=== PATIENT | female | born 1965 | race African-American/Black ===

== ENCOUNTER → 2017-05-25 | Outpatient (CLI) | payer BC | END | disposition home or self-care (01) | LOC: MAMMO 08:10 | PROVIDERS: ATTEND Family Medicine | DX: Z12.31 Encounter for screening mammogram for malignant neoplasm of breast (principal) | CPT/HCPCS: G0202 ==

== ENCOUNTER → 2018-04-01 | Outpatient (CLI) | payer SELFPAY | END | disposition home or self-care (01) | LOC: RAD 10:06 | PROVIDERS: ATTEND Radiology Diagnostic Radiology | DX: Z12.31 Encounter for screening mammogram for malignant neoplasm of breast (principal) | CPT/HCPCS: 77067 ==

== ENCOUNTER → 2019-04-21 | Outpatient (CLI) | payer BC | END | disposition home or self-care (01) | LOC: MAMMO 11:35 | PROVIDERS: ATTEND Family Medicine | DX: Z12.31 Encounter for screening mammogram for malignant neoplasm of breast (principal); R92.1 Mammographic calcification found on diagnostic imaging of breast | CPT/HCPCS: 77067 ==

== ENCOUNTER → 2019-05-07 | Outpatient (CLI) | payer BC ==
[2019-05-07 10:36] LABS: FOLIC ACID (FOLATE) SERUM 10.1 ng/mL (>5.38)
== END | disposition home or self-care (01) ==
LOC: LAB 08:04
PROVIDERS: ATTEND Family Medicine
DX: N92.6 Irregular menstruation, unspecified (principal)
CPT/HCPCS: 36415; 82746

== ENCOUNTER → 2019-10-03 | Outpatient (CLI) | payer BC | END | disposition home or self-care (01) | LOC: MRI 09:00 | PROVIDERS: ATTEND Radiology Diagnostic Radiology | DX: M51.26 Other intervertebral disc displacement, lumbar region (principal); M48.061 Spinal stenosis, lumbar region without neurogenic claudication; M51.37 Other intervertebral disc degeneration, lumbosacral region | CPT/HCPCS: 72148 ==

== ENCOUNTER → 2020-07-16 | Outpatient (CLI) | payer BC ==
[2020-07-16 07:54] LABS: BASOPHILS % 0.8 % (0.0-2.0); EOSINOPHILS % 4.2 % (0.0-5.0); HEMATOCRIT. 39.1 % (36.0-48.0); HEMOGLOBIN. 12.8 g/dL (12.0-16.0); LYMPHOCYTES % 33.1 % (20.0-50.0); MEAN CORPUSCULAR HEMOGLOBIN 29.5 pg (28.0-32.0); MEAN CORPUSCULAR VOLUME 89.9 fL (81.0-99.0); MONOCYTES % 5.6 % (2.0-8.0); NEUTROPHILS % 56.3 % (40.0-76.0); PLATELET 210 x1000/uL (130-400); RED BLOOD CELL COUNT 4.35 mill/uL (4.2-5.4); RED CELL DISTRIBUTION WIDTH 12.8 % (11.6-14.6)
[2020-07-16 08:11] LABS: CHLORIDE 105 mEq/L (98-107)
[2020-07-16 08:23] LABS: LDL CHOLESTEROL 153 mg/dL (5-100)
[2020-07-16 08:25] LABS: HDL CHOLESTEROL 70 mg/dL (40-59)
[2020-07-17 08:07] LABS: FOLICLE STIMULATING HORMONE 38.1 mIU/mL (.); VITAMIN D 25-OH 33.5 ng/mL (30.0-100.0)
== END | disposition home or self-care (01) ==
LOC: MRI 07:19
PROVIDERS: ATTEND Family Medicine
DX: S83.241A Other tear of medial meniscus, current injury, right knee, initial encounter (principal); S83.242A Other tear of medial meniscus, current injury, left knee, initial encounter; M25.461 Effusion, right knee; M94.261 Chondromalacia, right knee; M17.11 Unilateral primary osteoarthritis, right knee; M25.462 Effusion, left knee; M17.12 Unilateral primary osteoarthritis, left knee; M94.262 Chondromalacia, left knee; Z00.00 Encounter for general adult medical examination without abnormal findings; X58.XXXA Exposure to other specified factors, initial encounter; Y93.89 Activity, other specified; Y92.89 Other specified places as the place of occurrence of the external cause; Y99.8 Other external cause status
CPT/HCPCS: 36415; 73721; 80053; 80061; 82306; 83001; 84443; 85025

== ENCOUNTER → 2020-10-27 | Outpatient (CLI) | payer OTHER | END | disposition home or self-care (01) | LOC: MAMMO 10:45 | PROVIDERS: ATTEND Radiology Diagnostic Radiology | DX: Z12.31 Encounter for screening mammogram for malignant neoplasm of breast (principal) | CPT/HCPCS: 77067 ==

== ENCOUNTER → 2020-11-01 | Outpatient (CLI) | payer BC | END | disposition home or self-care (01) | LOC: RAD 11:24 | PROVIDERS: ATTEND Family Medicine | DX: N63.10 Unspecified lump in the right breast, unspecified quadrant (principal); R92.1 Mammographic calcification found on diagnostic imaging of breast | CPT/HCPCS: 77065 ==

== ENCOUNTER → 2021-11-17 | Outpatient (CLI) | payer OTHER | END | disposition home or self-care (01) | LOC: MAMMO 07:51 | PROVIDERS: ATTEND Family Medicine | DX: Z12.31 Encounter for screening mammogram for malignant neoplasm of breast (principal) | CPT/HCPCS: 77063; 77067 ==